=== PATIENT | female | born 1945 | race Caucasian/White ===

== ENCOUNTER → 2018-01-15 | Day surgery (SDC) | payer OTHER ==
[2018-01-09 11:35] VITALS: BMI 21.6
[~2018-01-15] MED LIST: LACTATED RINGERS SOLUTION 1,000 ML IV SCH; LIDOCAINE HCL 1%, 10 MG/ML (20ML VIAL) ONE; LIDOCAINE HCL/PF 2% SDV 5ML VIAL ONE; MIDAZOLAM HCL 2 MG/2 ML SINGLE DOSE VIAL ONE; ONDANSETRON 4 MG/2 ML VIAL IVPUSH PRN; PROPOFOL 20 ML ONE; oxyCODONE HCL 5 MG TABLET PO PRN
[2018-01-15 16:21] VITALS: TEMP 97.5
[2018-01-15 16:23] VITALS: PULSE 70
[2018-01-15 16:40] VITALS: BP 140/84
--- NOTE | 2018-01-16 09:28 | OP ---
DATE OF OPERATION: 01/15/2018 PREOPERATIVE DIAGNOSES: 1. Right carpal tunnel syndrome. 2. Right long trigger finger. POSTOPERATIVE DIAGNOSES: 1. Right carpal tunnel syndrome. 2. Right long trigger finger. OPERATIVE PROCEDURE: 1. Right carpal tunnel release. 2. Right long trigger finger release. SURGEON: Jalen Leung MD ANESTHESIA: Local with sedation. COMPLICATIONS: None. ESTIMATED BLOOD LOSS: Minimal. INDICATION FOR PROCEDURE: The patient is a 72-year-old female with the above finding, indicated for operative treatment. Risks, benefits, and alternatives were discussed with the patient at length. Proper informed consent was obtained. PROCEDURE: After proper identification of the patient and correct operative site, patient was brought to the operating room, placed supine on the operating table. All prominences well padded. Sedation was given by the anesthesiologist. Local anesthesia was given with 2% lidocaine. Right upper extremity was prepped and draped in usual sterile fashion. Well-padded tourniquet was placed as well as a sterile prep. Esmarch bandage to exsanguinate the right upper extremity. Tourniquet was inflated to 250 mmHg. A longitudinal incision was made in the proximal aspect of the palm. Incision was taken sharply through the skin, with blunt and sharp dissection through the subcutaneous tissues. Palmar fascia was divided longitudinally. Transcarpal ligament along with the distal 4 cm of the antebrachial fascia was divided longitudinally under direct visualization with loupe magnification. This provided complete release of the median nerve at the wrist. Wound was irrigated with saline and repaired with a 5-0 nylon suture. Second incision was made over the A1 alf of the long finger. Incision was taken sharply through the skin, with blunt and sharp dissection through the subcutaneous tissues. A1 alf was divided longitudinally. Patient was asked to flex and extend his finger. No further triggering was noted. Wound was irrigated with saline and repaired with a 5-0 nylon suture. Sterile dressings were applied. Patient was brought to recovery in stable condition. She tolerated the procedure well. JALEN LEUNG M.D. [facility]/[id number]
== END | disposition home or self-care (01) ==
LOC: FASU 11:31
PROVIDERS: ATTEND Orthopaedic Surgery Hand Surgery
PROC: 0LN70ZZ Release Right Hand Tendon, Open Approach (ICD-10-PCS; 2018-01-15)
PROC: 01N50ZZ Release Median Nerve, Open Approach (ICD-10-PCS; principal; 2018-01-15 13:31)
DX: G56.01 Carpal tunnel syndrome, right upper limb (principal); M65.331 Trigger finger, right middle finger
CPT/HCPCS: 94760